=== PATIENT | female | born 1990 | race Caucasian/White ===

== ENCOUNTER 2020-03-25 11:43 | Outpatient (CLI) | payer BC, SELFPAY ==
[2020-03-25 11:57] VITALS: BMI 43.4
[2020-03-25 12:18] VITALS: BP 129/69; PULSE 95; RESP 20; TEMP 36.9; O2SAT 97; BMI 43.4
[2020-03-25 12:33] LABS: Microscopic, Urine URINE MICROSCOPIC (MICROSCOPIC)
[2020-03-25 12:34] LABS: Appearance,Urine CLOUDY (Clear); Bilirubin,Urine Negative (Negative); Blood, Urine 1+ (Negative); Color,Urine DK YELLOW (Yellow); Glucose,Urine (UA) Negative (Negative); Ketones,Urine Negative (Negative); Leukocyte Esterase,Urine 2+ (Negative); Nitrate,Urine POSITIVE (Negative); Protein,Urine 2+ (Negative); Specific Gravity, Urine >= 1.030 (1.005-1.030)
[2020-03-25 12:44] LABS: RBC,Urine Occasional #/hpf (0-3); Squamous Epithelial Cell,Urine 20-50 #/hpf (0-5); WBC,Urine TNTC #/hpf (0-3)
[2020-03-25 12:45] LABS: Amorphous Sediment,Urine 2+ /lpf; Amphetamine/Metha Screen,Urine Negative ng/ml (<1000); Bacteria,Urine 3+ /lpf
[2020-03-25 12:46] LABS: Barbiturates Screen,Urine Negative ng/ml (<200)
[2020-03-25 12:47] LABS: Benzodiazepines Screen,Urine Negative ng/ml (<200); Cannabinoid Screen,Urine Negative ng/ml (<50)
[2020-03-25 12:48] LABS: Cocaine Screen,Urine Negative ng/ml (<300); Methadone Screen,Urine Negative ng/ml (<300)
[2020-03-25 12:49] LABS: Opiate Screen,Urine Negative ng/ml (<300)
[2020-03-25 12:50] LABS: Phencyclidine Screen,Urine Negative ng/ml (<25)
[2020-03-25 13:20] LABS: Fetal Fibronectin (Rapid) Negative (Negative)
== END 2020-03-25 15:03 | disposition home or self-care (01) ==
LOC: OBOUT 11:49 → OB 11:50
PROVIDERS: PCP Nurse Practitioner; Visit Provider Nurse Practitioner Obstetrics & Gynecology
DX: O23.43 Unspecified infection of urinary tract in pregnancy, third trimester (principal); Z3A.29 29 weeks gestation of pregnancy
CPT/HCPCS: 59025; 80305; 81001; 82731; 87086; 87088; 87186; 96365; 96367; G0463